=== PATIENT | female | born 1945 | race Caucasian/White ===

== ENCOUNTER → 2016-12-11 | Outpatient (CLI) | payer OTHER | LOC: FIMAGING 09:33 | PROVIDERS: ATTEND Internal Medicine | DX: Z80.41 Family history of malignant neoplasm of ovary (principal); Z90.710 Acquired absence of both cervix and uterus ==

== ENCOUNTER 2018-11-13 11:01 | Emergency (ER) | payer OTHER ==
--- NOTE | 2018-11-13 11:13 | EDPHY ---
H & P Stated Complaint: referred by Dr. Grissom Time Seen by Provider: 11/13/18 11:13 - Personal History Current Tetanus Diphtheria and Acellular Pertussis (TDAP): No - Medical/Surgical History Hx Asthma: No Hx Chronic Respiratory Disease: No Hx Diabetes: No Hx Cardiac Disease: No Hx Renal Disease: No Hx Cirrhosis: No Hx Alcoholism: No Hx HIV/AIDS: No Other PMH: eye problems - Social History Smoking Status: Never smoked Constitutional: Initial Vital Signs Temperature (C) 36.8 C 11/13/18 11:03 Heart Rate 101 H 11/13/18 11:03 Respiratory Rate 18 11/13/18 11:03 Blood Pressure 129/75 H 11/13/18 11:03 O2 Sat (%) 98 11/13/18 11:03 O2 Delivery Mode Room Air Allergies/Adverse Reactions: No Known Allergies Allergy (Verified 11/13/18 11:07) Home Medications: Medication Instructions Recorded Aspirin 81mg (*) 11/13/18 Prilosec 11/13/18 methylPREDNISolone [Medrol Dose 1 each PO AD #1 ea 11/13/18 Corey] Medical Decision Making - Diagnostics Imaging: Discussed imaging studies w/ scale model maker Radiologist, I viewed and interpreted images myself ED Course/Re-evaluation: CHIEF COMPLAINT: "Vision issues" HISTORY OF PRESENT ILLNESS: The patient is a 73 y/o female with a history of occipital neuralgia complaining of "vision issues". On 10/23/18, 3 weeks ago, she developed the vision issues. These vision changes were initially only in her left eye and included a "thunderstorm moving into [her left] eye with clouds and changes in depth with purple color. The area around the periphery would float and go back and forth". This episode lasted around 5 minutes. After the symptoms developed she saw her son-in-law, who is an retail worker. On Wednesday, 5 days ago, she went into her son-in-law's office who performed an eye exam including a dilation. There were no acute findings and no signs of a retinal detachment. However, since the initial episode she has had 5 more episodes that are increasing in frequency. These episodes include seeing "Technicolor as well as only in black and white". When these episodes occur she does not lose her vision but can only see in certain spots. These episodes are not associated with any pain and she occasionally has an eye pressure. Her retail worker called Dr. Grissom, import coordinator, who advised that the patient present to the emergency department. No fever, chest pain, shortness of breath, abdominal pain , urinary or bowel complaints, numbness, paresthesias. REVIEW OF SYSTEMS: A comprehensive 10 system review of systems is otherwise negative aside from elements mentioned in the history of present illness and medical decision making. PHYSICAL EXAM: HR, BP, O2 Sat, RR. Temp noted General Appearance: Alert, well hydrated, appropriate, and non-toxic appearing. Head: Atraumatic without scalp tenderness or obvious injury Eyes: Pupils equal, round, reactive to light and accommodation, EOMI, no trauma , no injection. Ears: Clear bilaterally, no perforation, normal landmarks Nose: Atraumatic, no rhinorrhea, clear. Throat: There is no erythema or exudates, no lesions, normal tonsils, mucus membranes moist. Neck: Supple, 2+ carotid upstroke, nontender, no lymphadenopathy. Respiratory: No retractions, no distress, no wheezes, and no accessory muscle use. Lungs are clear to auscultation bilaterally. Cardiovascular: Regular rate and rhythm, no murmurs, rubs, or gallops. Bilateral carotid, radial, dorsalis pedis, and posterior tibial pulses intact. Good capillary refill all extremities. Gastrointestinal: Abdomen is soft, nontender, non-distended, no masses, no rebound, no guarding, no peritoneal signs. Musculoskeletal: Normal active ROM of all extremities, atraumatic. Neurological: Alert, appropriate, and interactive. The patient has normal DTRs and non-focal cranial nerves, motor, sensory, and cerebellar exam. Skin: No rashes, good turgor, no nodules on palpation. Past medical history: Occipital neuralgia Past surgical history: Denies Family history: Denies Social history: at bedside, lives in [place], retired DIAGNOSTICS/PROCEDURES/CRITICAL CARE TIME: Brain MRI with arteritis protocol: Left pre-auricular temporal branch is inflamed. DIFFERENTIAL DIAGNOSIS: The differential diagnosis for the patient's eye complaints included but was not limited to temporal arteritis, retinal detachment, vitreous humor detachment.pneumonia, viral syndrome, meningitis, and sepsis. MEDICAL DECISION MAKING: The patient is a 73 y/o female with a history of occipital neuralgia presenting with increasing "vision issues" for the last 3 weeks. She had a normal eye exam with her retail worker. However, since the symptoms returned Dr. Grissom, an import coordinator, sent the patient to the emergency department for further evaluation. After consulting with Dr. Terrazas, radiologist, I will order this patient a brain MR w/ and w/o with arteritis protocol. Patient is comfortable with plan for MRI. I do not need to perform an eye exam since she had a normal exam with her retail worker last week. 1511: I spoke with Dr. Terrazas, radiologist, regarding patient's brain MRI. She does have left pre-auricular temporal arterial branch inflammation. 1515: Reassessed patient and discussed imaging findings. She does not have any vision loss and does not require admission for IV steroids. 10mg IV Decadron administered prior to discharge. I have advised her to follow up with Dr. Grissom and take a Medrol dose pack as prescribed. Return precautions provided; patient is comfortable with this plan. - Data Points Laboratory Results: 11/13/18 11:47 POC Hgb 14.6 gm/dL gm/dL (12.6-16.3) POC Hct 43 % % (38-47) POC Sodium 135 mEq/L mEq/L (135-145) POC Potassium 4.2 mEq/L mEq/L (3.3-5.0) POC Chloride 97 mEq/L mEq/L (97-110) POC Total CO2 26 mEq/L mEq/L (22-31) POC BUN 14 mg/dL mg/dL (7-23) POC Creatinine 0.5 mg/dL L mg/dL (0.6-1.0) POC Glucose 111 mg/dL H mg/dL (70-100) Medications Given: Discontinued Medications Dexamethasone (Decadron Injection) 10 mg IVP EDNOW ONE Stop: 11/13/18 15:25 Last Admin: 11/13/18 15:25 Dose: 10 mg Dexamethasone (Decadron Injection) 10 mg IVP EDNOW ONE Stop: 11/13/18 15:26 Last Admin: 11/13/18 15:25 Dose: Not Given Point of Care Test Results: Chemistry 11/13/18 11:47 POC Sodium 135 mEq/L mEq/L (135-145) POC Potassium 4.2 mEq/L mEq/L (3.3-5.0) POC Chloride 97 mEq/L mEq/L (97-110) POC Total CO2 26 mEq/L mEq/L (22-31) POC BUN 14 mg/dL mg/dL (7-23) POC Creatinine 0.5 mg/dL L mg/dL (0.6-1.0) POC Glucose 111 mg/dL H mg/dL (70-100) ISTAT H&H 11/13/18 11:47 POC Hgb 14.6 gm/dL gm/dL (12.6-16.3) POC Hct 43 % % (38-47) Departure - Departure Disposition: Home, Routine, Self-Care Clinical Impression: Temporal arteritis Condition: Good Instructions: Temporal Arteritis (ED) Additional Instructions: 1. Take the Medrol dose pack as prescribed. 2. Follow up with Dr. Grissom in the next week. Follow up with Dr. Candelaria, business law instructor, within the next week. 3. Return to the Emergency Department for severe headache, vomiting, vision changes, confusion, fever or other concerns. Referrals: MARGARET POSEY [Other] - As per Instructions Chidi Grissom MD [Medical Doctor] - As per Instructions Tor Georges [place] [place] - As per Instructions Prescriptions: methylPREDNISolone [Medrol Dose Corey] 1 each PO AD #1 ea Report Scribed for: Oswaldo Viveros Report Scribed by: Jemima Alvarez Date of Report: 11/13/18 Time of Report: 11:14
[2018-11-13] MEDS ORDERED: GADOBUTROL 10 ML VIAL IVP ONE (12:30)
[2018-11-13] MEDS ORDERED: DEXAMETHASONE 10 MG/ML VIAL ONE (15:22)
[2018-11-13] MEDS ORDERED: DEXAMETHASONE 10 MG/ML VIAL IVP ONE ×2 (15:24→15:25)
[2018-11-13 15:38] VITALS: BP 133/69
== END 2018-11-13 15:35 | disposition home or self-care (01) ==
DX: M31.6 Other giant cell arteritis (principal); M54.81 Occipital neuralgia
CPT/HCPCS: 70553; 96374; 99285; A9585; J1100; 82435-PO; 82565-PO; 82947-PO; 84132-PO; 84295-PO; 84520-PO; 85014-ER

== ENCOUNTER 2018-11-14 15:04 | Emergency (ER) | payer OTHER ==
[2018-11-14] MEDS ORDERED: methylPREDNISolone SOD SUCC 1,000 MG in D5W 100 ML IV ONE (15:55)
--- NOTE | 2018-11-14 15:59 | EDPHY ---
HPI/HX/ROS/PE/MDM Narrative: CHIEF COMPLAINT:"I need more steroids." HPI: The patient is a 73-year-old female who was seen in the ED yesterday by Dr. Viveros and diagnosed with temporal arteritis by MRI. She was given a dose of steroids and discharged with plan to follow-up with her manager audit for further management. She reports another episode of "thunderstorms" in her vision last night, but otherwise no new symptoms. In fact, she reports that her chronic arthritis feels much better. She is here because her son-in-law, who is an service manager, is requesting she receive additional pulse doses of solumedrol. REVIEW OF SYSTEMS: Aside from elements discussed in the HPI, a comprehensive 10-point review of systems was reviewed and is negative. PMH: Includes chronic arthritis. Temporal arteritis. SOCIAL HISTORY: . Denies alcohol or drug abuse. PHYSICAL EXAM: General:Patient is alert, in no acute distress. ENT:Eyes are normal to inspection. ENT inspection normal. Neck: Normal inspection. Full range of motion. Respiratory:No respiratory distress. Breath sounds normal bilaterally. Cardiovascular: Regular rate and rhythm. Strong peripheral pulses. Normal cap refill. Abdomen:The abdomen is nontender to palpation. There are no peritoneal signs. There are normal bowel sounds. Back: Normal to inspection. No tenderness to palpation. Skin: Normal color. No rash. Warm and dry. Extremities: Normal appearance. Full range of motion. Neuro: Oriented x3. Normal motor function. Normal sensory function. MDM: This patient presents for IV steroids. Current guidelines for acute temporal arteritis when vision is threatened are three days of high-dose IV solumedrol followed by oral prednisone. The patient has been unable to contact her manager audit or primary care physician to arrange for this, so she is receiving her second dose here in the ED. As I am unable to order an outpatient medication in the infusion center, patient will need to establish care with an outpatient doctor. I offered her hospital admission, but she declines. As a fail-safe, she can return to the ED tomorrow for her third dose. She agrees with this plan. Her condition appears unchanged from yesterday. - Data Points Laboratory Results: Laboratory Results 11/14/18 16:00 11/14/18 16:00 02/18/19 02/18/19 16:00 16:00 WBC 18.38 10^3/uL H 10^3/uL (3.80-9.50) RBC 4.52 10^6/uL 10^6/uL (4.18-5.33) Hgb 12.6 g/dL g/dL (12.6-16.3) Hct 38.6 % % (38.0-47.0) MCV 85.4 fL fL (81.5-99.8) MCH 27.9 pg pg (27.9-34.1) MCHC 32.6 g/dL g/dL (32.4-36.7) RDW 13.6 % % (11.5-15.2) Plt Count 433 10^3/uL H 10^3/uL (150-400) MPV 8.3 fL L fL (8.7-11.7) Neut % (Auto) 87.8 % H % (39.3-74.2) Lymph % (Auto) 6.6 % L % (15.0-45.0) Dixie % (Auto) 5.0 % % (4.5-13.0) Eos % (Auto) 0.0 % L % (0.6-7.6) Baso % (Auto) 0.1 % L % (0.3-1.7) Nucleat RBC Rel Count 0.0 % % (0.0-0.2) Absolute Neuts (auto) 16.16 10^3/uL H 10^3/uL (1.70-6.50) Absolute Lymphs (auto) 1.21 10^3/uL 10^3/uL (1.00-3.00) Absolute Monos (auto) 0.91 10^3/uL H 10^3/uL (0.30-0.80) Absolute Eos (auto) 0.00 10^3/uL L 10^3/uL (0.03-0.40) Absolute Basos (auto) 0.01 10^3/uL L 10^3/uL (0.02-0.10) Absolute Nucleated RBC 0.00 10^3/uL 10^3/uL (0-0.01) Immature Gran % 0.5 % % (0.0-1.1) Immature Gran # 0.09 10^3/uL 10^3/uL (0.00-0.10) Sodium 132 mEq/L L mEq/L (135-145) Potassium 4.5 mEq/L mEq/L (3.5-5.2) Chloride 98 mEq/L mEq/L (97-110) Carbon Dioxide 25 mEq/l mEq/l (22-31) Anion Gap 9 mEq/L mEq/L (6-14) BUN 20 mg/dL mg/dL (7-23) Creatinine 0.7 mg/dL mg/dL (0.6-1.0) Estimated GFR > 60 Glucose 117 mg/dL H mg/dL (70-100) Calcium 9.9 mg/dL mg/dL (8.5-10.4) Medications Given: Discontinued Medications Methylprednisolone Sodium (Succinate 1,000 mg/ Dextrose) 100 mls @ 100 mls/hr IV EDNOW ONE Stop: 11/14/18 16:54 Last Admin: 11/14/18 16:55 Dose: 100 mls General Time Seen by Provider: 11/14/18 15:27 Initial Vital Signs: Initial Vital Signs Temperature (C) 36.7 C 11/14/18 15:12 Heart Rate 78 11/14/18 15:12 Respiratory Rate 20 11/14/18 15:12 Blood Pressure 146/72 H 11/14/18 15:12 O2 Sat (%) 98 11/14/18 15:12 O2 Delivery Mode Room Air Allergies/Adverse Reactions: No Known Allergies Allergy (Verified 11/14/18 15:12) Home Medications: Medication Instructions Recorded Aspirin 81mg (*) 11/13/18 Prilosec 11/13/18 methylPREDNISolone [Medrol Dose 1 each PO AD #1 ea 11/13/18 Corey] Departure - Departure Disposition: Home, Routine, Self-Care Clinical Impression: Temporal arteritis Condition: Good Instructions: Temporal Arteritis (ED) Additional Instructions: Follow-up with your manager audit tomorrow morning. If all else fails, return to the ED tomorrow afternoon for repeat dose of IV steroids. Return to the ED immediately for fever, loss of vision, headache or other concerns. Referrals: MARGARET BRANDT MD [Primary Care Provider] - As per Instructions
[2018-11-14 16:07] LABS: PLATELET COUNT 433 10^3/uL (150-400)
[2018-11-14 18:09] VITALS: BP 157/86
== END 2018-11-14 18:12 | disposition home or self-care (01) ==
DX: M31.6 Other giant cell arteritis (principal)
CPT/HCPCS: 96365; 99284; J2930

== ENCOUNTER 2018-11-15 14:57 | Emergency (ER) | payer OTHER ==
[2018-11-15] MEDS ORDERED: methylPREDNISolone SOD SUCC 1,000 MG in D5W 100 ML IV ONE (16:24)
--- NOTE | 2018-11-15 17:32 | EDPHY ---
H & P Stated Complaint: dx temporal arteritis need steroid infusion Time Seen by Provider: 11/15/18 16:20 HPI/ROS: CHIEF COMPLAINT: Recently diagnosed with temporal arteritis, here for steroid infusion HISTORY OF PRESENT ILLNESS: The patient presents the emergency department for her third steroid infusion. She was diagnosed with temporal arteritis by MRI imaging 3 days ago. She is scheduled to see Neurology for follow-up. She does have a prescription for oral steroids to begin taking tomorrow. 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 She reports that the frequency of these have significantly decreased since starting her steroids. Her temporal pain is also decreased. She denies any acute headache, numbness or weakness. She denies any additional acute complaints. REVIEW OF SYSTEMS: A comprehensive 10 point review of systems is otherwise negative aside from elements mentioned in the history of present illness. Source: Patient Exam Limitations: No limitations - Personal History Current Tetanus Diphtheria and Acellular Pertussis (TDAP): Unsure - Medical/Surgical History Hx Asthma: No Hx Chronic Respiratory Disease: No Hx Diabetes: No Hx Cardiac Disease: No Hx Renal Disease: No Hx Cirrhosis: No Hx Alcoholism: No Hx HIV/AIDS: No Hx Splenectomy or Spleen Trauma: No Other PMH: eye problems, TONSILS, HYSTERECTOMY, GERD temporal areritis - Social History Smoking Status: Never smoked - Physical Exam Exam: General Appearance: Alert, no distress Eyes: Pupils equal and round no pallor or injection ENT, Mouth: Mucous membranes moist Respiratory: There are no retractions, lungs are clear to auscultation Cardiovascular: Regular rate and rhythm Gastrointestinal: Abdomen is soft and nontender, no masses, bowel sounds normal Neurological: A&O, normal motor function, normal sensory exam, normal cranial nerves Skin: Warm and dry, no rashes Musculoskeletal: Neck is supple nontender Extremities: symmetrical, full range of motion Constitutional: Initial Vital Signs Temperature (C) 36.5 C 11/15/18 15:01 Heart Rate 78 11/15/18 15:01 Respiratory Rate 17 11/15/18 15:01 Blood Pressure 119/69 11/15/18 15:01 O2 Sat (%) 99 11/15/18 15:01 O2 Delivery Mode Room Air Allergies/Adverse Reactions: No Known Allergies Allergy (Verified 11/15/18 15:01) Home Medications: Medication Instructions Recorded Aspirin 81mg (*) 11/13/18 Prilosec 11/13/18 Medical Decision Making ED Course/Re-evaluation: Patient was given her final gram of Solu-Medrol in the emergency department. She will begin oral steroids an outpatient. She plans to follow up with primary care provider and Neurology for further evaluation and management of her temporal arteritis. Steroid taper will be deferred to Neurology and her PCP. Patient is advised to return to the ED for acutely worsening neurologic symptoms or other concerns. Departure - Departure Disposition: Home, Routine, Self-Care Clinical Impression: Temporal arteritis Condition: Good Instructions: Temporal Arteritis (ED) Additional Instructions: 1. Begin oral steroids as previously prescribed. 2. Return to the ED for markedly worsening neurologic symptoms or other concerns. 3. Follow up with your primary care provider and neurologist referral as scheduled. Referrals: MARGARET BRANDT MD [Primary Care Provider] - As per Instructions
[2018-11-15 19:09] VITALS: BP 98/52
== END 2018-11-15 19:07 | disposition home or self-care (01) ==
DX: M31.6 Other giant cell arteritis (principal)
CPT/HCPCS: 96365; 99284; J2930